=== PATIENT | female | born 1985 | race Caucasian/White ===

== ENCOUNTER 2019-01-25 16:55 | Emergency (ER) | payer OTHER ==
[~2019-01-25] VITALS: Ht 157.5 cm; Wt 57.6 kg
[~2019-01-25 16:55] MED LIST: ADVIL200 M1 PO; DAYPRO600 MG PO; EFFEXOR XR75 MG PO; HALOPERIDOL5 MG PO; NORCO 7.5-3251 EACH PO; ONDANSETRON ODT4 MG SL; ONDANSETRON ODT8 MG PO; PROMETHAZINE HC25 M1 PO
--- OUTSIDE RECORDS SUMMARY | 2019-01-25 16:58 | XMS ---
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 - Has Care Guidelines CARE PROVIDERS MEGHANA DELA CRUZ Internal Medicine 11/22/2018-Current PHONE: Unknown [facility] Primary [facility] PHONE: [phone] [facility] [facility] Current PHONE: [phone] Charles has no Care Guidelines for this patient. Care History Medical/Surgical 11/22/2018 [facility] - Patient is currently established with [facility]. If patient is seen in the ED during business hours. Please contact CHWs at [facility]. Care Recommendation: This patient has had 5 or more Emergency Department visits in the last 12 months.\T\nbsp; Patient requires education on the scope and purpose of the ED as an acute care provider not a Primary Care Provider and should not be utilized for chronic conditions.\T\nbsp; These are guidelines and the provider should exercise clinical judgment when providing care. 11/22/2018 [facility] - CHW RECEIVED ED CASE MANAGEMENT CONSULT-PATIENT IS UNABLE TO AFFORD MEDICATIONS. - CHW CONTACTED PCP DR DELA CRUZ - DISCUSSED PATIENT NOT BEING ABLE TO AFFORD MEDICATIONS. - THEY WILL LOOK INTO OTHER MEDICATIONS AND SENDING MEDICATION FOR AUTHORIZATION TO [facility]. E.D. VISIT COUNT (12 MO.) 4 [facility]. TOTAL 4 NOTE: Visits indicate total known visits. ED/UCC VISIT TRACKING (12 MO.) 01/25/2019 16:[address] [facility] [place] TYPE: Emergency COMPLAINT: - VOMITTING 11/20/2018 08:25 [facility] [place] [facility] [place] TYPE: Emergency COMPLAINT: - VOMITING DIAGNOSES: - Allergy status to sulfonamides status - Nicotine dependence, unspecified, uncomplicated - Hematemesis - Vomiting, unspecified 11/18/2018 16:[address] [facility] [place] TYPE: Emergency COMPLAINT: - THROWING UP BLOOD DIAGNOSES: - Cyclical vomiting, not intractable - Nicotine dependence, unspecified, uncomplicated - Allergy status to sulfonamides status - Nausea with vomiting, unspecified - Epigastric pain 04/07/2018 06:50 [facility] [place] TYPE: Emergency COMPLAINT: - LEFT LEG INJURY DIAGNOSES: - Striking against or struck by other objects, initial encounter - Other jail (current) drug therapy - Allergy status to sulfonamides status - Pain in left knee - Anxiety disorder, unspecified - Nicotine dependence, unspecified, uncomplicated - Contusion of left knee, initial encounter INPATIENT VISIT TRACKING (12 MO.) No inpatient visits to display in this time frame [id number]
[2019-01-25] MEDS ORDERED: FLUOXETINE HCL20 MG PO (17:12)
[2019-01-25] MEDS ORDERED: OMEPRAZOLE20 MG PO (17:13)
[2019-01-27] MEDS ORDERED: TRAZODONE HCL50 MG PO (16:06)
== END 2019-01-25 20:25 | disposition home or self-care (01) ==
LOC: ED 16:55
DX: R11.10 Vomiting, unspecified (principal); F41.9 Anxiety disorder, unspecified; F17.200 Nicotine dependence, unspecified, uncomplicated; Z88.2 Allergy status to sulfonamides; Z79.899 Other long term (current) drug therapy
CPT/HCPCS: 80053; 81001; 83690; 84703; 85025; 96361; 96374; 96375; 99284-25; J2060; J2405; J2550; J7030; J7121

== ENCOUNTER 2019-01-27 15:53 | Emergency (ER) | payer OTHER ==
[~2019-01-27] VITALS: Ht 157.5 cm; Wt 54.4 kg
[~2019-01-27 15:53] MED LIST changes: +FLUOXETINE HCL20 MG PO; +OMEPRAZOLE20 MG PO
--- OUTSIDE RECORDS SUMMARY | 2019-01-27 15:56 | XMS ---
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 Care History Medical/Surgical 11/22/2018 [facility] - Patient is currently established with [facility]. If patient is seen in the ED during business hours. Please contact CHWs at [facility]. Care Recommendation: This patient has had 5 or more Emergency Department visits in the last 12 months.\T\nbsp; Patient requires education on the scope and purpose of the ED as an acute care provider not a Primary Care Provider and should not be utilized for chronic conditions.\T\nbsp; These are guidelines and the provider should exercise clinical judgment when providing care. 11/22/2018 [facility] - CHW RECEIVED ED CASE MANAGEMENT CONSULT-PATIENT IS UNABLE TO AFFORD MEDICATIONS. - CHW CONTACTED PCP DR DELA CRUZ - DISCUSSED PATIENT NOT BEING ABLE TO AFFORD MEDICATIONS. - THEY WILL LOOK INTO OTHER MEDICATIONS AND SENDING MEDICATION FOR AUTHORIZATION TO [facility]. EMesha VISIT COUNT (12 MO.) 5 [facility]. TOTAL 5 NOTE: Visits indicate total known visits. ED/C VISIT TRACKING (12 MO.) 01/27/2019 15:53 [facility] [place] TYPE: Emergency COMPLAINT: - VOMITTING 01/25/2019 16:56 [facility] [place] TYPE: Emergency COMPLAINT: - VOMITTING 11/20/2018 08:25 [facility] [place] TYPE: [place] COMPLAINT: - VOMITING DIAGNOSES: - Allergy status to sulfonamides status - Nicotine dependence, unspecified, uncomplicated - Hematemesis - Vomiting, unspecified 11/18/2018 16:34 [facility] [place] TYPE: Emergency COMPLAINT: - THROWING UP BLOOD DIAGNOSES: - Cyclical vomiting, not intractable - Nicotine dependence, unspecified, uncomplicated - Allergy status to sulfonamides status - Nausea with vomiting, unspecified - Epigastric pain 04/07/2018 06:50 [facility] [place] TYPE: Emergency COMPLAINT: - LEFT LEG INJURY DIAGNOSES: - Striking against or struck by other objects, initial encounter - 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
[2019-01-27] MEDS ORDERED: POTASSIUM CHLO20 ME1 PO (23:24)
== END 2019-01-27 23:35 | disposition home or self-care (01) ==
LOC: ED 15:53
DX: E87.6 Hypokalemia (principal); R10.10 Upper abdominal pain, unspecified; R11.2 Nausea with vomiting, unspecified; F41.9 Anxiety disorder, unspecified; F17.200 Nicotine dependence, unspecified, uncomplicated; Z88.2 Allergy status to sulfonamides; Z88.8 Allergy status to other drugs, medicaments and biological substances; Z79.899 Other long term (current) drug therapy
CPT/HCPCS: 74177; 76705; 80053; 81001; 83735; 84703; 85025; 99284-25; 99406; J2060; J2550; J3480; J7030; J7040; Q9967

== ENCOUNTER 2019-01-31 13:14 | Inpatient (IN) | payer OTHER ==
[~2019-01-31] VITALS: Ht 157.5 cm; Wt 54.4 kg
[~2019-01-31 13:14] MED LIST changes: +POTASSIUM CHLO20 ME1 PO
--- OUTSIDE RECORDS SUMMARY | 2019-01-31 13:16 | XMS ---
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 Care History Medical/Surgical 01/31/2019 [facility] CASE MANAGEMENT REFERRAL MADE FOR CLOSE FOLLOW UP. 11/22/2018 [facility] - Patient is currently established with [facility]. If patient is seen in the ED during business hours. Please contact CHWs at [facility]. Care Recommendation: This patient has had 5 or more Emergency Department visits in the last 12 months.\T\nbsp; Patient requires education on the scope and purpose of the ED as an acute care provider not a Primary Care Provider and should not be utilized for chronic conditions.\T\nbsp; These are guidelines and the provider should exercise clinical judgment when providing care. 11/22/2018 [facility] - CHW RECEIVED ED CASE MANAGEMENT CONSULT-PATIENT IS UNABLE TO AFFORD MEDICATIONS. - CHW CONTACTED PCP DR DELA CRUZ - DISCUSSED PATIENT NOT BEING ABLE TO AFFORD MEDICATIONS. - THEY WILL LOOK INTO OTHER MEDICATIONS AND SENDING MEDICATION FOR AUTHORIZATION TO [facility]. Araceli VISIT COUNT (12 MO.) 6 [facility]. TOTAL 6 NOTE: Visits indicate total known visits. 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 - Anxiety disorder, unspecified - Allergy status to oth drug/meds/biol subst status - Nicotine dependence, unspecified, uncomplicated - Allergy status to sulfonamides status 01/25/2019 16:56 [facility] [place] TYPE: Emergency COMPLAINT: - VOMITTING DIAGNOSES: - Allergy status to sulfonamides status - Nicotine dependence, unspecified, uncomplicated - Vomiting, unspecified - Other assisted (current) drug therapy - Anxiety disorder, unspecified 11/20/2018 08:25 [facility] [place] TYPE: Emergency COMPLAINT: - VOMITING DIAGNOSES: - Allergy status to sulfonamides status - Nicotine dependence, unspecified, uncomplicated - Hematemesis - Vomiting, unspecified 11/18/2018 16:34 [facility] [place] TYPE: [place] COMPLAINT: - THROWING UP BLOOD DIAGNOSES: - Cyclical vomiting, in migraine, not intractable - Nicotine dependence, unspecified, uncomplicated - Allergy status to sulfonamides status - Nausea with vomiting, unspecified - Epigastric pain 04/07/2018 06:50 [facility] [place] TYPE: Emergency COMPLAINT: - LEFT LEG INJURY DIAGNOSES: - Striking against or struck by other objects, init encntr - 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
[2019-01-31] MEDS ORDERED: TRAZODONE HCL150 MG PO (13:24)
[2019-01-31] MEDS ORDERED: BUSPIRONE HCL7.5 MG PO (13:25)
--- NOTE | 2019-01-31 18:40 | NUR ---
PATIENT TO FLOOR FROM ED, RIDE DOWN IN WC. TOLERATED WELL. NURSE REPORT AT BEDSIDE IN ED FROM JAYLA SEARS. PROVIDED WARM BLANKETS. FULL BODY ASSESMENT AND ADMISSION MEDICAITON ADMINISTERED. WAITING FOR PHARMAY WITH MAINTENANCE FLUIDS. PATIENT RESTING IN POSITION IN BED, APPEARS TO BE CALM, EYES CLOSED. EMESIS BAG NEAR BY, CALL LIGHT WITHIN REACH. SIGNIFICANT OTHER AT BEDSIDE. PROVIDED WARM BLANKETS AND ICE CHIPS.
--- NOTE | 2019-01-31 19:15 | NUR ---
BEDSIDE REPORT RECEIVED FROM OFFGOING RNMALGORZATA. PT RESTING IN BED WITH PARTNER AT BEDSIDE. PT DENIES NEEDS AT THIS TIME. CALL LIGHT WITHIN REACH.
--- NOTE | 2019-01-31 19:20 | NUR ---
CHARGE NURSE REPORT RECEIVED. NO NEEDS AT THIS TIME.
--- NOTE | 2019-01-31 21:17 | NUR ---
PT ASSESSMENT COMPLETE. PT RESTING IN BED WITH PARTNER AT BEDSIDE. PT REPORTS ABDOMINAL PAIN, NAUSEA, DENIES SOB. SCHEDULED PHENERGAN ADMINISTERED. PT INQUIRES ABOUT ATIVAN TO "HELP RELAX" EDUCATION PROVIDED. PT PROVIDED WITH NICOTINE LOZENGE. BT'S HYPERACTIVE. PT REPORTS ABD TENDERNESS TO PALPATION. PT DENIES FURTHER NEEDS AT THIS TIME. CALL LIGHT IN REACH. SIGNNIFICANT OTHER REMAINS AT BEDSIDE.
--- NOTE | 2019-01-31 21:35 | NUR ---
PT INFORMS NURSING HOME ADMISSIONS DIRECTOR THAT SINCE THURSDAY, SHE HAS BEEN HAVING A THROBBING PAIN TO HER R TOP OF HEAD THAT SPREADS DOWN INTO HER FACE AND JAW. PT ALSO REPORTS THAT WHEN SHE TOUCHES THIS AREA THE PAIN BECOMES STABBING IN NATURE. MD NOTIFIED OF THIS INFORMATION.
--- NOTE | 2019-02-01 00:51 | NUR ---
WRTIER TO ROOM FOR SCHEDULED MEDICATION ADMIN. PT AND SIGNIFICANT OTHER IN BED TOGETHER. NEITHER WAKE UP TO PEDIATRIC PHYSICIAN TALKING, OR IV MED ADMINISTRATION. CALL LIGHT IN REACH.
--- NOTE | 2019-02-01 03:05 | NUR ---
SOCIAL WORK COORDINATOR TO ROOM FOR SCHEDULED MED ADMINISTRATION. PT WAKES EASILY TO SOCIAL WORK COORDINATOR'S VOICE, SLEEPING IN BED WITH SIGNIFICANT OTHER. PT STATES THAT PAIN AND NAUSEA ARE WELL CONTROLLED WHILE SHE IS SLEEPING. NO EPISODES OF DRY HEAVING NOTED DURING THIS ASSESSMENT. PT DENIES SOB. BT'S ACTIVE, PT REPORTS THAT ABD TENDERNESS PRESENT, ALTHOUGH IMPROVED FROM PREVIOUS. IV FLUSHED, WNL. PT REQUESTS APPLE JUICE TO DRINK. DENIES FURTHER NEEDS AT THIS TIME. CALL LIGHT IN REACH.
--- NOTE | 2019-02-01 05:09 | NUR ---
PT SLEPT WELL THIS SHIFT. ABD PAIN AND NAUSEA WELL CONTROLLED WHILE PT ASLEEP, PER PT. SCHEDULED ANTI-EMETICS. UO QS. IVF INFUSING. ADVANCE DIET TOLERATED. INDEPENDENT IN ROOM.
--- NOTE | 2019-02-01 07:30 | NUR ---
PATIENT RESTING IN BED, REPORTS NAUSEA IMPROVED. FULL BODY ASSESMENT DONE. NO OTHER NEEDS AT THIS TIME. LIFE PARTNER AT BEDSIDE. CALL LIGHT WITHIN REACH.
[2019-02-01] MEDS ORDERED: ONDANSETRON ODT4 MG PO (10:13)
[2019-02-01] MEDS ORDERED: TRAZODONE HCL50 MG PO (10:14)
[2019-02-01] MEDS ORDERED: ATIVAN1 MG PO (11:28)
--- NOTE | 2019-02-01 11:29 | NUR ---
MED REC COMPLETE
--- NOTE | 2019-02-01 11:52 | NUR ---
DR. MCLAIN TO ROOM, ROUNDING. PATIENT APPEARS CALM, TALKING WITH DR. MCLAIN. IV FLUIDS INFUSING. PATIENT ATTEMPTED SOUP, REPORTED COULD NOT CONTINUE TO EAT.
--- NOTE | 2019-02-01 14:20 | NUR ---
IV ALARM HAS BEEN GOING OFF. SAP MANAGER STAFF IN CARING FOR PT. NAUSEAU STILL A PROBLEM, PT AFRAID TO EAT OR DRINK ANYTHING. PT THANKED ME FOR COMING IN AND WILL CONTINUE TO FOLLOW NEEDED
--- NOTE | 2019-02-01 15:00 | NUR ---
PATIENT UP AMBULATING IN HALLS, NO NAUSEA AT THIS TIME. APPEARS CALM. VS STABLE. IV MOVED TO LEFT ARM SECONDARY TO PAINFUL SITE. PATIENT REPORTS VISTARIL IS EFFECTIVE AND FEELS RELAXED. NO OTHER NEEDS AT THIS TIME. CALL LIGHT WITHIN REACH.
--- NOTE | 2019-02-01 16:30 | NUR ---
PT IN BED WATCHING TV. SIGNIFICANT OTHER AT BEDSIDE. PT MEDICATED WITH ZOFRAN PER REQUEST. DENIES PAIN OR OTHER CONCERNS. CALL LIGHT WITHIN REACH.
--- NOTE | 2019-02-01 18:24 | NUR ---
PT SHOWERED INDEPENDENTLY. ATE ALL OF DINNER, SOUP, MASHED POTATOES, JUICE. FREDDY WELL. SO AT BEDSIDE. CALL LIGHT WITHIN REACH.
--- NOTE | 2019-02-01 19:20 | NUR ---
PT RESTING IN BED. WATCHING TV. FAMILY IN ROOM. PT REPORTS NO NAUSEA AT THIS TIME. IV CDI, WNL. NO FURTHER NEEDS AT THIS TIME. CALL LIGHT IN REACH.
--- NOTE | 2019-02-01 19:45 | NUR ---
PATIENT CALLED TO EMPTY THE HAT FULL OF VOIDINGS. DONE.
--- NOTE | 2019-02-01 21:30 | NUR ---
PT RESTING IN BED, WATCHING TV. DENIES NAUSEA OR PAIN. PT STATES THAT SHE FEELS LIKE SHE WANTS TO SMOKE. NICOTINE PATCH HAD COME OFF AFTER SHOWER. PT STATES THE NICOTINE LOZENGES MAKE HER HAVE NAUSEA AND DOES NOT WANT THEM. NEW NICOTINE PATCH PLACED ON BACK. SCHEDULED MEDS PROVIDED. ASSESSMENT COMPLETED. NO OTHER NEEDS AT THIS TIME. CALL LIGHT IN REACH.
--- NOTE | 2019-02-01 22:05 | NUR ---
CALL LIGHT ANSWERED. PT PROVIDED WITH FRUIT AND APPLE JUICE REQUESTED. RESTING IN BED, DENIES NAUSEA. IVF INFUSING WNL ORDERED. CALL LIGHT IN REACH.
--- NOTE | 2019-02-01 22:19 | NUR ---
APPLE JUICE PROVIDED PER PATIENT.
--- NOTE | 2019-02-01 23:02 | NUR ---
CALL LIGHT ANSWERED. DISTAL OCCLUSION. IVF INFUSING WNL ORDERED. NO REQUESTS AT THIS TIME.
--- NOTE | 2019-02-02 01:24 | NUR ---
PT RESTING IN BED, EYES CLOSED. RR 12, EVEN, UNLABORED. CALL LIGHT IN REACH.
--- NOTE | 2019-02-02 02:04 | NUR ---
CALL LIGHT ANSWERED. PT INDEPENDENT TO RESTROOM. IV PUMP ALARMING FOR DISTAL OCCLUSION, IV FLUSHED WNL, IVF INFUSING WNL ORDERED. pt BACK IN BED. URINE HAT EMPTIED. NO C/O NAUSEA, PAIN. CALL LIGHT IN REACH.
--- NOTE | 2019-02-02 02:28 | NUR ---
PT AWAKE IN BED. PT DENIES PAIN OR NAUSEA. ASSESSMENT COMPLETED. IV CDI, WNL. SIGNIFICANT OTHER IN ROOM. NO FURTHER NEEDS AT THIS TIME. CALL LIGHT IN REACH.
--- NOTE | 2019-02-02 04:39 | NUR ---
PT RESTING IN BED WITH EYES CLOSED. RR 12, EVEN, UNLABORED. SIGNIFICANT OTHER IN ROOM. LUCIA FILOMENAE ON. CALL LIGHT IN REACH.
--- NOTE | 2019-02-02 04:54 | NUR ---
PT SLEPT WELL THIS SHIFT. NO NAUSEA OR PAIN. IV FLUSHED, CDI, WNL. REGULAR DIET TOLERATED WELL. LUCIA HOSE TOLERATED WELL. VSS. A&O X4. SIGNIFICANT OTHER IN ROOM ALL NIGHT.
--- NOTE | 2019-02-02 08:55 | NUR ---
patient is very nauseous after trying to eat oatmeal, nurse is aware
--- NOTE | 2019-02-02 09:17 | NUR ---
MORNING ASSESSMENT DONE. PATKENT DRANK APPLE JUICE FOR BREAKFAST AND BECAME ACUTELY NAUSEATED. IV PHENERAGAN GIVEN, IV ZOFRAN TO FOLLOW. PATIENT SEEMED TO CALM DOWN AFTER THE ZOFRAN. IV MEDICATIONS GIVEN. PATIENT UNABLE TO TOLERATE MORNING PILLS. MORNING ASSESSMENT IS OTHERWISE BENIGN. FRIEND IN ROOM WITH PATIENT.
--- NOTE | 2019-02-02 09:47 | NUR ---
ATIVAN 1MG GIVEN FOR CONTINUED N/V
--- NOTE | 2019-02-02 11:08 | NUR ---
PATIENT GIVEN IV DECADRON, ODT ZYPREXA. D5LR @ 100 RESUMED.
--- NOTE | 2019-02-02 11:51 | NUR ---
PATIENT REPORTS BEING SLIGHTLY LESS NAUSEATED, CONTINUES TO THRASH AROUND IN BED.
--- NOTE | 2019-02-02 12:04 | NUR ---
PATIENT CONTINUES TO HAVE DRY HEAVES, REPORTS CONTINUED NAUSEA.
--- NOTE | 2019-02-02 12:23 | NUR ---
1MG DOSE OF IV ATIVAN REPEATED PER DR. MCLAIN
--- NOTE | 2019-02-02 13:42 | NUR ---
PT ASLEEP, ORION FELIPE REQUESTED I NOT DISTURB HER AT THIS MOMENT. WILL CHECK BACK ON PT.
--- NOTE | 2019-02-02 14:02 | NUR ---
PATIENT RESTING IN BED, SEEMS TO HAVE CALMED DOWN, IS NOT ACTIVLY RETCHING, OCCASIONALLY SLEEPING.
--- NOTE | 2019-02-02 14:54 | NUR ---
PATIENT WITH IV PHENERGAN FOR NAUSEA FLARE UP. IV MAG 2G INFUSING FOR ONE HOUR
--- NOTE | 2019-02-02 15:11 | NUR ---
PATIENT IN BED RESTING WITH EYES CLOSED. FRIEND IN ROOM. CALL LIGHT IN REACH. NO FURTHER NEEDS AT THIS TIME.
--- NOTE | 2019-02-02 16:57 | NUR ---
PATIENT HAS HAD NAUSEA AND VOMITING FOR MOST OF THE DAY TODAY, HAS BEEN UNABLE TO TAKE ANYTHING BY MOUTH. BY 1600 NAUSEA AND VOMITING SLOWED. PATIENT IS SLEEPING BY 1700. IVF INFUSING, MAG AND KCL RIDER GIVEN TODAY.
--- NOTE | 2019-02-02 18:35 | NUR ---
PATIENT SLEEPING SOUNDLY.
--- NOTE | 2019-02-02 18:56 | NUR ---
1800 VITALS DEFERRED, MENTIONED TO DR. MCLAIN. PATIENT IS SLEEPING SOUNDLY
--- NOTE | 2019-02-02 19:20 | NUR ---
ROUNDED CAHRGE. PATIENT IS RESTING IN BED WITH EYES CLOSED, RR 17. CALL LIGHT IN REACH.
--- NOTE | 2019-02-02 20:23 | NUR ---
PATIENT IN BED VISITING WITH FAMILY AT THIS TIME. CALL LIGHT IN REACH.
--- NOTE | 2019-02-02 22:07 | NUR ---
PATIENT WANTS HER NICOTINE PATCH AT NIGHT AND TIMING WAS CHANGED AND THIS WAS PUT ON HER BACK RIGHT SHOULDER. PATIENT WAS GIVEN 12.5MG IV PHENERGA IN 20MLS NS, AND THEN HAD HER PILLS CRUSHED AND POWDER PLACED IN SOME SPRITE, BECAUSE SHE WAS AFRAID THE PILLS WOULD MAKE HER VOMIT. SO FAR HER NAUSEA IS IMPROVING AND SHE HAD KEPT THE PILLS DOWN.
--- NOTE | 2019-02-02 23:15 | NUR ---
PATIENT RESTING QUIETLY ON HER RIGHT SIDE EYES CLOSED, RESPIRATIONS REGULAR AND EVEN, NO SIGNS OF DISTRESS. PATIENT HAS HAD NO MORE VOMITING OR COMPLAINTS. SIGNIFICANT OTHER IS SLEEPING CURLED UP BEHIND THE PATIENT IN THE BED. CALL LIGHT IS IN REACH.
--- NOTE | 2019-02-03 01:10 | NUR ---
PATIENT CONTINUES TO REST QUIETLY ON HER SIDE WITH S.O. IN BED WITH HER SLEEPING WELL. CALL LIGHT IN REACH. NO FURTHER C/O NAUSEA.
--- NOTE | 2019-02-03 03:50 | NUR ---
PATIENT CONTINUES TO REST QUIETLY IN BED WITH HER S/O AND HAS HAD NO C/O N/V. NO NEEDS AT THIS TIME AND CALL LIGHT IN REACH.
--- NOTE | 2019-02-03 04:45 | NUR ---
PATIENT HAS BASICALLY SLEPT ALL NIGHT WITH NO MORE DRY HEAVES OR VOMITING AFTER PM IV PHENERGAN GIVEN PER PROTOCOL AND PM MEDS BEING CRUSHED UP INTO POWDER AND GIVEN IN SPRITE. S/O IN ROOM IN BED WITH THE PATIENT MOST OF THE NIGHT. CALL LIGHT IN REACH. IV RUNNING WITHIN NORMAL LIMITS.
--- NOTE | 2019-02-03 07:07 | NUR ---
REPORT RECEIVED FROM ORION DOMINGUEZ. PT RESTING SUPINE IN BED EYES CLOSED AND RESPIRATIONS EVEN AND UNLABORED. CALL LIGHT AND H2O IN REACH.
--- NOTE | 2019-02-03 07:52 | NUR ---
IN TO ANSWER CALL LIGHT. IV PUMP BEEPING SHOWS COMPLETED. IV PATENT AND SL'D. PT ALERT AND ORIENTED X4. ASSESSMENT COMPLETED. CALL LIGHT AND H2O IN REACH. PT DENIES NAUSEA, PAIN SOB OR ANY OTHER NEEDS OR CONCERNS AT THIS TIME.
--- NOTE | 2019-02-03 09:00 | NUR ---
PT RESTING SUPINE IN BED ALERT AND ORIENTED. PT TOLERATED MOST OF BREAKFAST AND DENIES NAUSEA, SOB OR PAIN. STATES "I FEEL MUCH BETTER THAN I DID YESTERDAY". ASSESSMENT COMPLETED AND AM MEDS ADMINISTERED. CALL LIGHT AND H2O IN REACH. PT DENIES NEEDS OR CONCERNS.
--- NOTE | 2019-02-03 09:31 | NUR ---
PT HAS FAMILY IN ROOM. PT HAD SHOWER. PT HAS NO NEEDS AT THIS TIME.
[2019-02-03] MEDS ORDERED: NICOTINE PATCH1 EAC1 TD (11:58)
[2019-02-03] MEDS ORDERED: PROMETHAZINE HC25 MG PR (11:58)
[2019-02-03] MEDS ORDERED: ONDANSETRON ODT4 MG PO (11:59)
[2019-02-03] MEDS ORDERED: HYDROXYZINE HCL25 MG PO (12:00)
--- NOTE | 2019-02-03 12:00 | NUR ---
PT RESTING SUPINE IN BED, ALERT AND ORIENTED. PT DENIES NAUSEA, PAIN OR SOB STATES "I HOPE I CAN GO HOME SOON". CALL LIGHT AND H2O IN REACH. AWARE OF PT REQUEST.
--- NOTE | 2019-02-03 12:52 | NUR ---
PT UP AMBULATING IN BAIRD. SEEMS ALERT AND ORIENTED MENTIONING THAT SHE IS FEELING "SO" MUCH BETTER. GOOD VISIT, WILL FOLLOW NEEDED
== END 2019-02-03 13:15 | disposition home or self-care (01) | DRG 897 ==
LOC: ED 13:14 → MS 13:15
PROVIDERS: ADMIT Internal Medicine
DX: F12.188 Cannabis abuse with other cannabis-induced disorder (principal); R11.2 Nausea with vomiting, unspecified; F41.9 Anxiety disorder, unspecified; K29.50 Unspecified chronic gastritis without bleeding; K21.9 Gastro-esophageal reflux disease without esophagitis; F17.200 Nicotine dependence, unspecified, uncomplicated; E87.6 Hypokalemia; Z79.899 Other long term (current) drug therapy; Z88.8 Allergy status to other drugs, medicaments and biological substances; Z88.2 Allergy status to sulfonamides
CPT/HCPCS: 36415; 80048; 80053; 81001; 83735; 84703; 85025; 86140; 96361; 96365; 96375; 96376; 99284-25; C9113; G0378; J1100; J1200; J2060; J2405; J2550; J3475; J3480; J7060; J7121; Q0177